=== PATIENT | female | born 1940 | race Two or more races ===

== ENCOUNTER 2024-08-07 07:18 | Outpatient (CLI) | payer OTHER ==
[2024-08-07 08:00] VITALS: BP 133/65; O2SAT 97
[2024-08-07 08:55] VITALS: BP 176/89; O2SAT 99
[2024-08-07 09:10] VITALS: BP 138/74; O2SAT 99
[2024-08-07 09:25] VITALS: BP 146/65; O2SAT 99
== END 2024-08-07 07:20 | disposition home or self-care (01) ==
LOC: TOM 07:18
PROVIDERS: ATTEND Internal Medicine Hematology & Oncology
DX: R91.1 Solitary pulmonary nodule (principal); J84.10 Pulmonary fibrosis, unspecified

== ENCOUNTER 2025-01-21 07:53 | Emergency (ER) | payer OTHER ==
[~2025-01-21] VITALS: Ht 162.6 cm; Wt 50.8 kg
[2025-01-21] MEDS ORDERED: ARBLI10 MG/1 ML (08:31)
[2025-01-21] MEDS ORDERED: ATORVASTATIN CA10 MG (08:31)
[2025-01-21] MEDS ORDERED: PROAIR RESPICL90 MCG (08:31)
[2025-01-21] MEDS ORDERED: METHYLPREDNISOLONE SOD SUCC 125 MG VIAL IV STA (08:43)
[2025-01-21] MEDS ORDERED: METHYLPREDNISOLONE SOD SUCC 40 MG VIAL ONE (08:44)
[2025-01-21] MEDS ORDERED: LEVALBUTEROL HCL 0.63 MG/3 ML SOLUTION IH SCH ×2 (08:45→13:00)
[2025-01-21] MEDS ORDERED: IPRATROPIUM BROMIDE 0.5 MG/2.5 ML AMPUL.NEB IH SCH (08:45)
[2025-01-21 09:38] LABS: BASO % 0.4 % (0.1-1.2); EOS # 0.00 (0.04-0.54); EOS % 0.0 % (0.7-7.0); LYMPH # 0.97 (1.18-3.74); LYMPH % 13.3 % (19.3-53.1); MEAN PLATELET VOLUME 8.90 fl (9.4-12.4); MONO # 0.58 (0.24-0.82); MONO % 8.0 % (4.7-12.5); NEUT # 5.70 (1.56-6.13); NEUT % 78.2 % (34.0-71.1); RED CELL DISTRIBUTION WIDTH 14.3 % (11.6-14.4)
[2025-01-21] MEDS ORDERED: IPRATROPIUM BROMIDE 0.5 MG/2.5 ML AMPUL.NEB IH ONE (09:44)
[2025-01-21] MEDS ORDERED: LEVALBUTEROL HCL 0.63 MG/3 ML SOLUTION IH ONE ×2 (09:44→13:21)
[2025-01-21 09:47] LABS: COVID-19 AG NEGATIVE (NEGATIVE)
[2025-01-21 09:47] LABS: ERYTHROCYTE SEDIMENTATION RATE 19 mm/hr (0-30)
[2025-01-21 09:53] LABS: INR 0.98
[2025-01-21 09:59] LABS: ALT/SGPT 31.0 U/L (12-78); AST/SGOT 31.0 U/L (15-37); BILIRUBIN TOTAL 0.42 mg/dL (0.3-1.2); BUN CREA RATIO 15.0 (7.0-25.0); CREATININE SERUM 0.71 mg/dL (0.55-1.02); GFR 78.43; GLOBULINA 3.3 G/DL (2.4-3.5); GLUCOSE FASTING 107.0 mg/dL (65-100); OSMOLALITY SERUM 277.0 MOSM/KG (275-295)
[2025-01-21 11:27] LABS: URINE APPEARANCE Clear; URINE BILIRRUBIN Negative (NEGATIVE); URINE BLOOD Negative; URINE COLOR Yellow; URINE GLUCOSE Negative (NEGATIVE); URINE KETONE Trace (NEGATIVE); URINE LEUKOCYTE Negative; URINE NITRATE Negative; URINE PROTEIN 30 (NEGATIVE); URINE UROBILINOGEN 1.0 E.U./dl
[2025-01-21 11:31] LABS: URINE BACTERIA 14.8 uL (0.0-1933); URINE EPITHELIAL CELLS 3.5 uL (0.0-38.8); URINE RBC 18.9 uL (0.0-20.8); URINE WBC 1.8 uL (0.0-23.2)
[2025-01-21 11:50] LABS: URINE CAST 0.14 uL (0.0-1.40)
[2025-01-21] MEDS ORDERED: ZITHROMAX500 MG PO (14:27)
[2025-01-21] MEDS ORDERED: XOPENEX CO1.25 MG/0. IH (14:27)
[2025-01-21] MEDS ORDERED: BUDESONIDE0.5 MG/2 M IH (14:27)
[2025-01-21] MEDS ORDERED: MEDROLPACK PO (14:27)
[2025-01-21] MEDS ORDERED: MUCINEX D ER 61 EACH PO (14:27)
== END 2025-01-21 14:50 | disposition home or self-care (01) ==
LOC: ER 07:53
PROVIDERS: Physician Assistant Medical
DX: J06.9 Acute upper respiratory infection, unspecified (principal); J98.01 Acute bronchospasm; R09.02 Hypoxemia; R05.8 Other specified cough; R06.02 Shortness of breath; R07.89 Other chest pain; R09.81 Nasal congestion; R91.8 Other nonspecific abnormal finding of lung field; I10 Essential (primary) hypertension; Z20.822 Contact with and (suspected) exposure to COVID-19
CPT/HCPCS: 36415; 71046; 82803; 94640; 96365; 99283; J3490